=== PATIENT | male | born 1965 | race Caucasian/White ===

== ENCOUNTER 2020-09-27 06:53 | Outpatient (NON) | payer BC, SELFPAY ==
[2020-09-27 19:52] LABS: SARS-CoV-2 RNA PCR Negative
== END 2020-09-27 06:54 ==
LOC: ANHCOVIDDT 06:53
PROVIDERS: PCP Family Medicine; Visit Provider Nurse Practitioner Family
DX: Z20.828 Contact with and (suspected) exposure to other viral communicable diseases (principal); R68.89 Other general symptoms and signs
CPT/HCPCS: 87635; C9803; U0003

== ENCOUNTER → 2021-11-13 10:00 | Outpatient (CLI) | payer BC, SELFPAY ==
--- NOTE | ~2021-11-13 | MR_ITS ---
EXAMINATION: MR knee RT wo con DATE: 11/13/2021 11:20 INDICATION: Unilateral primary osteoarthritis of the right knee TECHNIQUE: Magnetic resonance imaging (MRI) of the right knee was performed without intravenous contr ast. Sequences included coronal PD-weighted FSE, coronal PD-weighted FS FSE, sagittal T2-weighted FS E, sagittal PD-weighted FS FSE and axial PD weighted fat saturated FSE. COMPARISON: None. FINDINGS: Medial compartment: Partial thickness radial tear extending 5 mm AP and cross anterior half of the posterior horn of the medial meniscus. The tear plane can't be well appreciated on axial series 6, image 20. Full/near full -thickness chondral fissuring without degenerative subchondral changes at the anterior weightbearing medial femoral condyle. Cartilage at the medial tibial plateau appears normal. Lateral compartment: Longitudinal tear at the posterior horn of the lateral meniscus likely complex with suggestion of bot h horizontal component extending to the free edge and peripheral vertical components extending to the inferior articular surface and the peripheral third. Partial-thickness chondral fissuring along the medial side of the lateral tibial plateau along the shoulder the intercondylar eminence. Mild chondra l surface irregularity along the medial side of the anterior weightbearing lateral femoral condyle. Patellofemoral compartment: Partial-thickness chondral fissuring along the posterior medial aspect of the medial patellar facet. Deep chondral ulceration and fissuring with underlying cortical irregularity at the mid to inferior a spect of and trochlear groove and medial side of the lateral trochlea. Additional partial thickness c artilage loss and deep fissuring at the more lateral aspect of the lateral trochlea. Ligaments and tendons: Anterior and posterior cruciate ligaments are normal. The medial collateral ligament and fibular kulwant ateral ligament complex are normal. The extensor mechanism is normal. The visualized medial and later al hamstring tendons as well as the iliotibial band are normal. Fluid: Physiologic amount of fluid in the joint space. No loose osteochondral bodies identified. Osseous/other: Mild cystic change and subcortical edema at the posterior aspect of the intercondylar eminence center ed near the footplate of the posterior horn of the lateral meniscus. No fracture or pathologic marrow replacing process. IMPRESSION: 1. Tears at the posterior horns of the medial and lateral menisci. 2. Mild tricompartmental osteoarthritis with moderate and high-grade chondromalacia in the patellofem oral compartment and moderate grade chondromalacia at the medial and lateral compartments. Reviewed, dictated and finalized at location A. BER CUB IMPRESSION: 1. Tears at the posterior horns of the medial and lateral menisci. 2. Mild tricompartmental osteoarthritis with moderate and high-grade chondromal acia in the patellofemoral compartment and moderate grade chondromalacia at the medial and lateral compartments.
== END ==
PROVIDERS: Visit Provider Physician Assistant Surgical
DX: M17.11 Unilateral primary osteoarthritis, right knee (principal); Z01.818 Encounter for other preprocedural examination; S83.241A Other tear of medial meniscus, current injury, right knee, initial encounter; S83.281A Other tear of lateral meniscus, current injury, right knee, initial encounter; X58.XXXA Exposure to other specified factors, initial encounter
CPT/HCPCS: 73721

== ENCOUNTER 2023-07-28 15:46 | Outpatient (CLI) | payer BC, SELFPAY ==
--- NOTE | ~2023-07-28 | XR_ITS ---
Left Knee Technique: AP, lateral, and sunrise views were obtained. Clinical History: Osteoarthritis Findings: No fracture or dislocation is seen. Osseous alignment is anatomic. Minimal degenerative spu rring of the patella and intercondylar notch. Soft tissues are unremarkable. No joint effusion is see n. Impression: Minimal degenerative spurring, as above. Reviewed, dictated and finalized at location M. Impression: Minimal degenerative spurring, as above.
--- NOTE | ~2023-07-28 | XR_ITS ---
Right Knee Technique: AP, lateral, and sunrise views were obtained. Clinical History: Osteoarthritis Findings: No fracture or dislocation is seen. Osseous alignment is anatomic. Joint spaces are preserv ed without degenerative or erosive change. Soft tissues are unremarkable. No joint effusion is seen. Impression: Unremarkable right knee radiographs. Reviewed, dictated and finalized at location . Impression: Unremarkable right knee radiographs.
== END 2023-07-28 15:47 | disposition home or self-care (01) ==
PROVIDERS: PCP Family Medicine; Visit Provider Orthopaedic Surgery
DX: M17.0 Bilateral primary osteoarthritis of knee (principal)
CPT/HCPCS: 73564

== ENCOUNTER 2024-01-21 13:31 | Emergency (ER) | payer BC, SELFPAY ==
--- NOTE | ~2024-01-21 | CT_ITS ---
EXAMINATION: CT abdomen pelvis w con DATE: 01/21/2024 15:16 INDICATION: Left lower quadrant abdominal pain. TECHNIQUE: Computed tomography (CT) of the abdomen and pelvis was performed with 100 mL Omnipaque-350 intravenous contrast. Automated exposure control and iterative reconstruction technique were employe d. The dose-length product was 1455.27 mGy-cm. COMPARISON: None FINDINGS: Scattered dependent and discoid atelectasis in the bilateral lower lobes. Heart size is normal. No pe ricardial or pleural effusion. Small calcified gallstone in the dependent aspect of the normal-appear ing gallbladder. No wall thickening or pericholecystic infiltrate stranding to suggest acute cholecys titis. Liver, pancreas, spleen, bilateral adrenal glands and right kidney are normal. 3 mm at least p artially obstructing stone at the left ureterovesicular junction with mild left hydroureteronephrosis . No other urolithiasis. Indeterminate 11 mm soft tissue density exophytic lesion at the upper pole o f the left kidney. There are few scattered colonic diverticula without adjacent from trace stranding to suggest diverticulitis. Small bowel and appendix are normal. Bladder is normal. No free intraperit gonzales gas or fluid. No pathologically enlarged abdominal or pelvic lymphadenopathy. Moderate spondylo sis at L5-S1 and mild spondylosis of the more cephalad lumbar and lower thoracic spine. IMPRESSION: 1. Mild left hydroureteronephrosis extending to at least partially obstructing 3 mm stone at the left ureterovesicular junction. 2. Indeterminate 11 mm soft tissue density exophytic lesion at the upper pole the left kidney which c ould represent a proteinaceous/hemorrhagic cyst or renal cell carcinoma. Recommend further evaluation with pre and postcontrast MRI or CT. Reviewed, dictated and finalized at location A. L PIECE CUTTER IMPRESSION: 1. Mild left hydroureteronephrosis extending to at least partially obstructing 3 mm stone at the left ureterovesicular junction. 2. Indeterminate 11 mm soft tissue density exophytic lesion at the upper pole t he left kidney which could represent a proteinaceous/hemorrhagic cyst or renal cell carcinoma. Recommend further evaluation with pre and postcontrast MRI or C T.
[2024-01-21 13:39] VITALS: BP 131/78; PULSE 70; RESP 18; TEMP 36.3; O2SAT 97
[2024-01-21 13:53] LABS: Basophils Percent Auto 0.4 % (0.2-1.2); Eosinophils Percent Auto 0.3 % (0-4.4); Hematocrit 43.3 % (42.0-52.0); Hemoglobin 15.5 g/dL (14.0-18.0); Immature Granulocyte Absolute 0.04 K/mm3 (0.00-0.031); Immature Granulocyte Percent A 0.4 % (0-0.5); Lymphocytes Absolute Auto 1.38 K/mm3 (0.9-3.2); Lymphocytes Percent Auto 13.2 % (18.3-44.2); Mean Corpuscular HGB Conc 35.8 g/dl (32-36); Mean Corpuscular Hemoglobin 31.6 pg (26-34); Mean Corpuscular Volume 88.4 fl (80-100); Mean Platelet Volume 9.8 fl (7.4-10.4); Monocytes Absolute Auto 0.6 K/mm3 (0.1-0.6); Monocytes Percent Auto 6.1 % (2.6-8.5); Neutrophils Absolute Auto 8.3 K/mm3 (1.3-6.7); Neutrophils Percent Auto 79.6 % (45.5-73.1); Platelet Count Result 205 k/mm3 (150-375); Red Cell Distribution Width 11.4 % (11.5-14.5); White Blood Count 10.4 K/mm3 (4.5-10.0)
[2024-01-21 14:05] VITALS: BP 140/91; PULSE 71; RESP 16; O2SAT 96
[2024-01-21 14:15] LABS: Alanine Aminotransferase 33 U/L (6-50); Albumin Level 4.3 g/dL (3.5-5.1); Alkaline Phosphatase 63 U/L (38-126); Anion Gap 7 mmol/L (8-16); Aspartate Amino Transferase 33 U/L (17-59); Blood Urea Nitrogen 16 mg/dL (9-20); Calcium 8.9 mg/dL (8.4-10.2); Carbon Dioxide 26 mmol/L (22-30); Chloride 106 mmol/L (98-107); Estimated CRCL calculation 90 ml/min; Estimated Glomerular Filt Rate > 60; Glucose 105 mg/dL (65-110); Lipase 79 U/L (23-300); Potassium 3.9 mmol/L (3.4-5.0); Sodium 139 mmol/L (137-145)
--- NOTE | 2024-01-21 14:42 | ED.ABDPAIN ---
HPI - Abdominal Pain General Chief Complaint: Abdominal Pain Stated Complaint: LLQ abd pain Time Seen by Provider: 01/21/24 14:04 Source: patient and family () Mode of arrival: ambulatory Limitations: no limitations History of Present Illness HPI narrative: 58 yo male presents with LLQ abdominal pain that started at 4am. He initially had nausea and vomited several times but this resolved. No diarrhea, fevers. Radiates towards his groin but no penile discharge or pain in penis/scrotum/testicles. Pain occurs intermittently. Has not taken anything for pain. Intermittent. Sent from urgent care to rule out diverticulitis; no history of this previously. He tested negative for flu and covid while at urgent care. LBM was this morning and normal without diarrhea, constipation, or blood. Related Data Home Medications Medication Instructions Recorded Confirmed omega 0-zoq-oer-fish oil 300 1 cap PO DAILY 04/22/22 08/06/23 mg-1,000 mg capsule (Fish Oil) Allergies Allergy/AdvReac Type Severity Reaction Status Date / Time clams Allergy Unknown NAUSEA Verified 08/06/23 08:35 [facility] Past Medical History Medical History Adult BMI 34.0-34.9 kg/sq m BMI 35.0-35.9,adult Osteoarthritis of right knee Surgical History Surgical History History of foot surgery (~2000) History of surgical removal of meniscus of knee (~2012) Family History Family History Mother Hypertension Grandparent Diabetes mellitus Father Family history of Parkinson's disease Other Cerebrovascular accident Depression Family history of malignant neoplasm of bone Social History Social History Smoking status: Never smoker Second hand tobacco smoke exposure: No Alcohol intake: current Substance use: never Substance use type: does not use Lack of Transportation: No Lack of Food: Never True Current Housing: I Have Housing Concerned About Future Housing: No Difficulty Paying Gas/Electric Bills: No Difficulty Paying for Meds: No Currently Unemployed: No Education: Master's Degree or Higher Difficulty w/ Childcare or Family Care: No Living arrangements: with family Exam Narrative: GENERAL: Well-appearing, well-nourished, and in no acute distress. HEAD: Normocephalic, atraumatic. EYES: Non injected, non icteric ENT: Nares clear, no rhinorrhea or epistaxis. NECK: Supple. CHEST: Speaking in full sentences. No respiratory distress. HEART: Regular rate and rhythm. ABDOMEN: Soft, nondistended. No overlying ecchymosis. Grossly symmetric. TTP in LLQ without rebound tenderness or guarding. Not peritoneal. EXTREMITIES: Normal range of motion. No edema. SKIN: Warm, dry, no rash. NEURO: No focal deficits. Alert and oriented x3. PSYCH: Normal mood and affect. Course Vital Signs Vital signs: Vital Signs Temperature 97.4 F L 01/21/24 13:39 Pulse Rate 70 01/21/24 13:39 Respiratory Rate 18 01/21/24 13:39 Blood Pressure 131/78 01/21/24 13:39 Pulse Oximetry 97 01/21/24 13:39 Oxygen Delivery Room Air 01/21/24 13:39 Temperature 98.8 F 01/21/24 16:45 Pulse Rate 84 01/21/24 16:45 Respiratory Rate 22 H 01/21/24 16:45 Blood Pressure 138/76 01/21/24 16:45 Pulse Oximetry 96 01/21/24 16:45 Oxygen Delivery Room Air 01/21/24 13:39 MDM - Abdominal Pain MDM Narrative Medical decision making narrative: Patient presents with LLQ that radiates towards groin since 4am. Initially nauseated and vomiting but that resolved. No fevers. In the ED he is afebrile with VS WNL. He does express that he might need some medication for CT scan as he gets claustrophobic. CT imaging shows 3mm stone at UVJ. Mild hydroureteronephrosis as well as unclear lesion at kidne
[2024-01-21 15:24] LABS: Appearance Urine Clear (Clear); Bilirubin Urine Negative (Negative); Blood Urine Negative (Negative); Color Urine Yellow (Yellow); Glucose Urine UA Negative (Negative); Ketones Urine Negative (Negative); Leukocyte Esterase Ur Negative LEU/UL (Negative); Nitrate Urine Negative (Negative); Protein Urine Negative (Negative); Specific Grav Ur 1.007 (1.001-1.035); Urobilinogen Urine 0.2 mg/dL (<2.0)
[2024-01-21 15:30] LABS: Add Urine Microscopic? NO
[2024-01-21] MEDS: HALOPERIDOL LACTATE 5 MG/ML VIAL 2.5 MG IV PUSH (15:53)
[2024-01-21 15:54] VITALS: BP 137/73; PULSE 75; RESP 19; O2SAT 99
[2024-01-21] MEDS: TAMSULOSIN HCL 0.4 MG CAPSULE PO (16:25)
[2024-01-21] MEDS: KETOROLAC 15 MG/ML VIAL (*BKC) IV PUSH (16:25)
[2024-01-21 16:45] VITALS: BP 138/76; PULSE 84; RESP 22; TEMP 37.1; O2SAT 96
== END 2024-01-21 16:48 | disposition home or self-care (01) ==
PROVIDERS: Physician Assistant; Emergency Provider Student in an Organized Health Care Education/Training Program; PCP Family Medicine
DX: N13.2 Hydronephrosis with renal and ureteral calculous obstruction (principal); N28.9 Disorder of kidney and ureter, unspecified; M17.11 Unilateral primary osteoarthritis, right knee
CPT/HCPCS: 36415; 74177; 80053; 81003; 83690; 85025; 96374; 96375; 99284; A9270; J1630; J1885; Q9967

== ENCOUNTER 2024-02-21 14:34 | Outpatient (CLI) | payer BC, SELFPAY ==
--- NOTE | ~2024-02-21 | MR_ITS ---
MRI of the abdomen: Clinical indication: Left renal lesion. Technique: Coronal SSFSE ARC, WATER:coronal LAVA-FLEX, Coronal 2D FIESTA FatSat, Axial SSFSE BH ARC, Axial 3D DualEcho BH, Axial SSFSE-IR, Axial DWI b=500, Axial 2D FIESTA FatSat, pre and dynamic postco ntrast Axial LAVA ARC, postcontrast Coronal In and Opposed phase LAVA FLEX . Following intravenous ad ministration of 20 cc MultiHance gadolinium, T1-weighted fat-sat imaging was performed in the axial a nd coronal planes. COMPARISON: CT scan dated 324 Findings: Gallbladder is unremarkable. The common bile duct is normal in course and caliber. No filli ng defects are seen within the CBD. No evidence of intrahepatic biliary ductal dilatation. The pancre atic duct is normal in size. Again identified is a 10 mm mass at the lateral upper pole left kidney. This is T1 hyperintense, T2 h ypointense, with no apparent postcontrast enhancement. Liver, spleen, pancreas, adrenals, right kidney appear normal. The aorta and the paraaortic regions a ppear normal. Impression: 10 mm mass at the upper pole left kidney is most compatible with proteinaceous/hemorrhagic cyst. Reviewed, dictated and finalized at [facility]. Impression: 10 mm mass at the upper pole left kidney is most compatible with proteinaceous/ hemorrhagic cyst.
== END 2024-02-21 14:35 | disposition home or self-care (01) ==
PROVIDERS: PCP Family Medicine; Visit Provider Physician Assistant Medical
DX: N28.9 Disorder of kidney and ureter, unspecified (principal)
CPT/HCPCS: 74183; A9577

== ENCOUNTER 2024-05-03 10:07 | Outpatient (CLI) | payer BC, SELFPAY ==
--- NOTE | ~2024-05-03 | XR_ITS ---
XR knee LT min 4V Ordering provider: Bert Correa MD History: . M17.0 - Bilateral primary osteoarthritis of knee, F/U . Comparison: July 28, 2023 FINDINGS: BONES: No acute fracture or dislocation. JOINT SPACES: Normal. SOFT TISSUES: Normal. IMPRESSION: No acute osseous abnormality left knee. Reviewed, dictated and finalized at location A.
--- NOTE | ~2024-05-03 | XR_ITS ---
XR knee RT min 4V Ordering provider: Bert Correa MD History: . M17.0 - Bilateral primary osteoarthritis of knee. F/U . Comparison: July 28, 2023 FINDINGS: BONES: No acute fracture or dislocation. JOINT SPACES: Normal. SOFT TISSUES: Normal. IMPRESSION: No acute osseous abnormality right knee. Reviewed, dictated and finalized at location A.
== END 2024-05-03 10:08 | disposition home or self-care (01) ==
PROVIDERS: PCP Family Medicine; Visit Provider Orthopaedic Surgery
DX: M17.0 Bilateral primary osteoarthritis of knee (principal)
CPT/HCPCS: 73564

== ENCOUNTER 2024-09-14 15:46 | Outpatient (CLI) | payer BC, SELFPAY ==
--- NOTE | ~2024-09-14 | US_ITS ---
EXAMINATION: US renal BI DATE: 09/14/2024 16:27 INDICATION: Disorder of kidneys and ureter. TECHNIQUE: Multiple ultrasound grayscale images of the kidneys were obtained. COMPARISON: MRI dated 02/21/2024 FINDINGS: The right kidney measures 12.3 x 6.2 x 5.7 cm. The left kidney measures 12.0 x 6.2 x 4.4 cm. The kidn eys demonstrate normal echogenicity. There is no hydronephrosis in either kidney. No shadowing renal stones identified. The bladder is normal with bilateral ureteral jets visualized on color Doppler. IMPRESSION: 1. Normal kidneys without hydronephrosis. Reviewed, dictated and finalized at location A.
== END 2024-09-14 15:47 | disposition home or self-care (01) ==
PROVIDERS: PCP Family Medicine; Visit Provider Physician Assistant Medical
DX: N28.9 Disorder of kidney and ureter, unspecified (principal)
CPT/HCPCS: 76775

== ENCOUNTER 2025-01-22 12:56 | Outpatient (CLI) | payer BC, SELFPAY ==
--- NOTE | ~2025-01-22 | MR_ITS ---
EXAMINATION: MR knee LT wo con DATE: 01/22/2025 13:36 INDICATION: Unspecified internal derangement of left knee. Left knee pain. TECHNIQUE: Magnetic resonance imaging (MRI) of the left knee was performed without intravenous contra st. Sequences included axial PD-weighted FS FSE, coronal PD-weighted FSE and PD-weighted FS FSE, sagi ttal PD-weighted FSE, and sagittal T2-weighted FS FSE. COMPARISON: Left knee radiographs 11/10/2024 FINDINGS: Medial compartment: There is a complex tear involving the body and posterior horn of medial meniscus. There is shallow pa rtial thickness causes loss of tibial condyle with subchondral edema-like marrow signal intensity. Th ere is full-thickness cartilage loss of femoral condyle involving the central articular surface. Ther e is a subchondral insufficiency fracture of femoral condyle involving the central articular surface with low signal subchondral fracture line and surrounding edema-like marrow signal intensity. Lateral compartment: There is a radial tear of posterior root of lateral meniscus. There is deep partial thickness causes loss of tibial condyle involving the medial articular surface with mild subchondral edema-like marrow signal intensity. Femoral cartilage is normal. Patellofemoral compartment: There is cartilage surface irregularity of patella. There is deep partial thickness cartilage loss of medial, central, and lateral trochlea with mild subchondral edema-like marrow signal intensity. Ligaments and tendons: Anterior cruciate ligament is normal. Posterior cruciate ligaments is normal. There are changes of pr ior sprains of medial collateral ligament and fibular collateral ligament characterized by increased signal intensity proximally. There is mild patellar tendinopathy. Fluid: There is a small knee joint effusion. There is a 16 mm ganglion cyst posterior to the knee joint. The re is mild prepatellar and superficial infrapatellar bursitis. IMPRESSION: 1. Subchondral insufficiency fracture of medial femoral condyle. 2. Severe chondrosis of medial compartment and moderate chondrosis of lateral and patellofemoral comp artments. 3. Tears of medial and lateral menisci. 4. Small knee joint effusion. Reviewed, dictated and finalized at location B. IMPRESSION: 1. Subchondral insufficiency fracture of medial femoral condyle. 2. Severe chondrosis of medial compartment and moderate chondrosis of lateral a nd patellofemoral compartments. 3. Tears of medial and lateral menisci. 4. Small knee joint effusion.
== END 2025-01-22 12:57 | disposition home or self-care (01) ==
LOC: MICIMG 12:58
PROVIDERS: PCP Family Medicine; Visit Provider Orthopaedic Surgery
DX: M25.462 Effusion, left knee (principal); S83.282A Other tear of lateral meniscus, current injury, left knee, initial encounter; S83.242A Other tear of medial meniscus, current injury, left knee, initial encounter; X58.XXXA Exposure to other specified factors, initial encounter
CPT/HCPCS: 73721

== ENCOUNTER 2025-03-05 01:49 | Day surgery (SDC) | payer BC, SELFPAY ==
[2025-02-27 14:47] VITALS: BMI 35.4
--- NOTE | 2025-02-27 15:18 | PC.NURSE ---
Report to the Outpatient Waiting Room, entrance under the green pavilion located off [facility], at time _1300_ on date __03/05/25 . Planned Procedure Time: _1500__.? Time changes happen often and if your time is changed the preop area will call you the afternoon before. - You and your visitor will be asked to self-screen and do not enter if you have any COVID symptoms. Please call surgeon if you need to reschedule. - A mask is optional within the hospital at this time. Patients may have clear liquids (water, carbonated beverages, clear teas, apple juice) until 3 hours prior to surgery with a maximum of 20 ounces. - No food from midnight until time of surgery and no smoking, or chewing tobacco (or any form of nicotine). No chewing gum, candy or mints. Take only the following medications with a SIP of water on the morning of surgery: _BUPROPRION DO NOT STOP ANY OF YOUR OTHER PRESCRIPTION MEDICATIONS PRIOR TO SURGERY EXCEPT THE FOLLOWING Hold all vitamins and supplements for 3 days per anesthesiologist. Medications to discontinue per physician FISH OIL__03/02/25 NO NEED TO HOLD CELEBREX Date to take last dose Please no make-up, nail bahamian, hairspray, perfume, deodorant, or body powder the day of surgery.? No jewelry (including any body piercings) or valuables the day of surgery, leave them at home.? Please take a shower or bath the night before, or the morning of, surgery with an antibacterial soap.? Wear comfortable, loose fitting clothing.? - Jewelry must be removed prior to entering the operating room.? Rings and piercings that are not removed may be cut off. - The hospital will not accept responsibility for valuables.? - Please leave all valuables, including medications, at home the day of surgery. If you are going home after surgery, a licensed otr company driver must drive you home.? - NO public transportation without another adult if you receive anesthesia. - We recommend that an adult stay with you for 24 hours following discharge. - We also recommend that you do not drive, make important decision, drink alcoholic beverages, or take any drugs that were not prescribed by your health care provider for at least 24 hours after your discharge time. Follow any additional instructions given to you from your surgeon. Telephone instructions given to _JT and asked if any additional questions and then verbalized understanding. Patient advised to call surgeon office or pre surgery nurse liaison [phone] if any additional questions.
[2025-03-05] VITALS (7 sets, daily range): BP systolic 116–152; BP diastolic 61–99; PULSE 72–90; RESP 14–20; TEMP 36.1–36.7; O2SAT 94–97
--- OUTSIDE RECORDS SUMMARY | 2025-03-05 01:51 | XMS_ITS | Referral Summary ---
Author Organization [facility] [place] [address] Address [address] [place] [id number] Care Team Providers Care Junior Web Developer Name Role Phone Unknown, Notinfile Primary Care Provider Unavail able Encounters Date Type Department Care Team Description 12/05/2024 8:00 AM ORDNANCE TECHNICIAN Office Visit [facility] at [address] [id number] Richa Jiménez NP Abscess of right thigh (Primary Dx) from Last 3 Months Allergies No known active allergies Medications Wellbutrin XL 300 mg 24 hr tablet Take 1 tablet (300 mg total) by mouth every morning 11/19/2023 Active allopurinoL (ZYLOPRIM) 100 mg tablet Take 1 tablet (100 mg total) by mouth daily Active Active Problems Problem Noted Date Diagnosed Date 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 Social History Tobacco Use Types Packs/Day Years Used Date Smoking Tobacco: Never Assessed Alcohol Use Standard Drinks/Week Comments Yes 0 (1 standard drink = 0.6 oz pur e alcohol) Sex and Gender Information Value Date Recorded Sex Assigned at Not on file Legal Sex Male 12:37 AM ORDNANCE TECHNICIAN Gender Identity Not on file Sexual Orientation Not on file Last Filed Vital Signs Vital Sign Reading Time Taken Comments Blood Pressure 159/89 12/05/2024 8:05 AM ORDNANCE TECHNICIAN Pulse 77 12/05/2024 8:05 AM ORDNANCE TECHNICIAN Temperature 36.8 C (98.2 F) 12/05/2024 8:05 AM ORDNANCE TECHNICIAN Respiratory Rate 20 12/05/2024 8:05 AM ORDNANCE TECHNICIAN Oxygen Saturation 99% 12/05/2024 8:05 AM ORDNANCE TECHNICIAN Inhaled Oxygen Concentration - - Weight 123.4 kg (272 lb) 12/05/2024 8:05 AM ORDNANCE TECHNICIAN Height 186.7 cm (6' 1.5 ) 12/05/2024 8:05 AM ORDNANCE TECHNICIAN Body Mass Index 35.4 12/05/2024 8:05 AM ORDNANCE TECHNICIAN Plan of Treatment Not on file Insurance [facility] ACCESS CHOICE Care Teams Junior Web Developer Relationship Specialty Start Date End Date Unknown, Notinfile PCP - General 01/21/24
--- OUTSIDE RECORDS SUMMARY | 2025-03-05 01:51 | XMS_ITS | Clinical Summary ---
Author Organization 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 Encounters Date Type Department Care Team Description 12/05/2024 8:00 AM HEEL CEMENTER Office Visit [facility] at [address] [phone] Richa Jiménez NP Abscess of right thigh (Primary Dx) from Last 3 Months Social History Tobacco Use Types Packs/Day Years Used Date Smoking Tobacco: Never Assessed Alcohol Use Standard Drinks/Week Comments Yes 0 (1 standard drink = 0.6 oz pur e alcohol) Sex and Gender Information Value Date Recorded Sex Assigned at Not on file Legal Sex Male 12:37 AM HEEL CEMENTER Gender Identity Not on file Sexual Orientation Not on file Obstetrics History Last Filed Vital Signs Vital Sign Reading Time Taken Comments Blood Pressure 159/89 12/05/2024 8:05 AM HEEL CEMENTER Pulse 77 12/05/2024 8:05 AM HEEL CEMENTER Temperature 36.8 C (98.2 F) 12/05/2024 8:05 AM HEEL CEMENTER Respiratory Rate 20 12/05/2024 8:05 AM HEEL CEMENTER Oxygen Saturation 99% 12/05/2024 8:05 AM HEEL CEMENTER Inhaled Oxygen Concentration - - Weight 123.4 kg (272 lb) 12/05/2024 8:05 AM HEEL CEMENTER Height 186.7 cm (6' 1.5 ) 12/05/2024 8:05 AM HEEL CEMENTER Body Mass Index 35.4 12/05/2024 8:05 AM HEEL CEMENTER Plan of Treatment Health Maintenance Due Date Last Done Comments Colon Cancer Screening-Colonoscopy 1965 Depression Screening 1965 Hepatitis C Screening 1965 Prostate Cancer Screening-PSA 1965 DTaP/Tdap/Td Vaccine (1 - Tdap) 1976 Hepatitis B Screening 1983 Regular Well Visit/Exam 18-64 1983 Zoster Vaccine (1 of 2) 2015 Influenza Vaccine (#1) 2024 Pneumococcal vaccine <65 Aged Out No longer eligible based on patient's age to complete this topic Insurance [employer] CHOICE Care Teams Commercial Print Salesman Relationship Specialty Start Date End Date Unknown, Notinfile PCP - General 01/21/24
--- OUTSIDE RECORDS SUMMARY | 2025-03-05 01:51 | XMS_ITS | Clinical Summary ---
Author Organization [facility] Care Team Providers Care Wrapping Checker Name Role Phone Unavailable Primary Care Provider Unavailabl e Social History Tobacco Use Types Packs/Day Years Used Date Smoking Tobacco: Never Assessed Sex and Gender Information Value Date Recorded Sex Assigned at Not on file Legal Sex Male 12:00 PM TRICK RODEO RIDER Gender Identity Not on file Sexual Orientation Not on file Plan of Treatment Health Maintenance Due Date Last Done Comments Hepatitis C Virus (HCV) Screening 1965 TdaP Immunization 1965 Hepatitis B Immunization (1 of 3 - 19+ 3-dose series) 1984 Colonoscopy 2010 Colorectal Cancer Screening 2010 Cologuard 2015 Immunochemical Fecal Occult Blood 2015 Pneumococcal Immunization (5 0+ years) (1 of 1 - PCV) 2015 Zoster Immunization (1 of 2) 2015 PSA Discussion 2020 Influenza Immunization (#1) 2024 SARS-COV-2 Immunization ( - season) 2024 Respiratory Syncytial Virus (RSV) Immunization (Adult) (1 - 1-dose 75+ series) 2040 Meningococcal Immunization (ACWY) Aged Out No longer eligible based on patient's age to complete this topic Pneumococcal Immunization Combined Aged Out No longer eligible based on patient's age to complete this topic Rotavirus Immunization Aged Out No lo nger eligible based on patient's age to complete this topic
--- NOTE | 2025-03-05 11:46 | WPDHPUPDATE1 ---
History and Physical Update Update Date/Time: 03/05/25 11:46 History and Physical has been reviewed, including an updated exam of the patient. There are NO changes in the patient's condition. Risks, benefits, and alternatives have been discussed and questions answered. Patient agrees to proceed with procedure.
[2025-03-05] MEDS: ACETAMINOPHEN 500 MG TABLET 1000 MG PO (13:25)
[2025-03-05] MEDS: LACTATED RINGERS 1,000 ML 30 ML IV CONT ×2 (13:28→16:49)
[2025-03-05] MEDS: KETOROLAC 15 MG/ML VIAL (*BKC) IV PUSH (13:30)
--- NOTE | 2025-03-05 14:07 | WPDANESEPPF ---
Anes - Initial Pre Proc Eval Procedure: Operation Date: 03/05/25 15:00 Proposed Procedures p Left Knee Arthroscopic Partial Medial and Lateral Meniscectomy - Bert Correa MD Date/Time: 03/05/25 14:07 Surgeon: Bert Correa MD Pre Op Diagnosis: Lt Knee Med & Lat Meniscus Tear Patient Data Age: 59 Gender: M Height: 1.83 m Weight: 121.3 kg Last Vital Signs Temp 36.7 C 03/05/25 13:10 Pulse 90 03/05/25 13:10 Resp 16 03/05/25 13:10 BP 144/90 H 03/05/25 13:10 Pulse Ox 97 03/05/25 13:10 O2 Del Method Room Air 03/05/25 13:10 Allergies Allergy/AdvReac Type Severity Reaction Status Date / Time clams Allergy Unknown NAUSEA Verified 03/05/25 13:13 Home Medications ?Medication ?Instructions ?Recorded ?Confirmed ?Type omega 6-mnh-gpb-fish oil 300 1 cap PO DAILY 04/22/22 03/05/25 History mg-1,000 mg capsule (Fish Oil) allopurinol 100 mg tablet 100 mg PO DAILY #90 tabs 09/26/24 03/05/25 Rx Wellbutrin XL 300 mg 24 hr tablet, 300 mg PO QAM #90 tabs 10/24/24 03/05/25 Rx extended release (bupropion HCl) celecoxib 200 mg capsule 200 mg PO DAILY #90 caps 01/10/25 03/05/25 Rx hydrocodone 5 mg-acetaminophen 325 1 - 2 tablet PO Q4-6H PRN pain 7 03/05/25 Rx mg tablet days #30 tabs Patient hx anesthesia problems: none Family hx anesthesia problems: none Results Review: All pre-operative results and documents have been reviewed as part of the pre-operative evaluation. FOR[facility]LY [facility] Past Medical History Medical History BMI 35.0-35.9,adult Adult BMI 34.0-34.9 kg/sq m Osteoarthritis of right knee Surgical History Surgical History History of surgical removal of meniscus of knee (~2012) History of foot surgery (~2000) Family History Family History Mother Hypertension Grandparent Diabetes mellitus Father Family history of Parkinson's disease Other Cerebrovascular accident Depression Family history of malignant neoplasm of bone Social History Social History Smoking status: Never smoker Second hand tobacco smoke exposure: No Alcohol intake: current Substance use: never Substance use type: does not use Do You Feel Safe in your Home?: Yes Lack of Transportation: No Lack of Food: Never True Current Housing: I Have Housing Concerned About Future Housing: No Difficulty Paying Gas/Electric Bills: No Difficulty Paying for Meds: No Currently Unemployed: No Education: Master's Degree or Higher Difficulty w/ Childcare or Family Care: No Living arrangements: with family Casss - Danyel Final PreProcedure Day of Procedure 03/05/25 14:07 Patient weight: obese Heart: regular rate and rhythm Lungs: clear to auscultation Airway: Mallampati scale class II Neurological: alert and oriented Last oral intake: >/= 8 hours ASA classification: II Emergent: no Anesthetic plan: proceed Anesthesia type and monitoring: general LMA and standard monitoring Results Review: All pre-operative results and documents have been reviewed as part of the pre-operative evaluation. Informed Consent: The patient's anesthetic plan and its attendant risks and benefits were discussed with the patient/family/POA. Questions were solicited and answers provided to the satisfaction of the patient/family/POA.
--- NOTE | 2025-03-05 15:07 | PM.HPGS ---
History of Present Illness History of Present Illness Consent: Risks, benefits, and alternatives have been discussed and questions answered. Patient agrees to proceed with procedure. Chief complaint: Lt Knee Med & Lat Meniscus Tear Narrative: Axel Rain is a 59 year old male with worsening medial sided left knee pain. He has swelling and intermittent catching. He is having a difficult time walking. Symptoms initially began a few months ago when he was walking on uneven surfaces while hunting. He has had 2 injections. He complains of associated swelling and a catching sensation. He has been unable to work out. He uses Advil. Review of Systems Review of Systems: All systems reviewed & are unremarkable except as noted in HPI and below PMFSH Past Medical History Medical History BMI 35.0-35.9,adult Adult BMI 34.0-34.9 kg/sq m Osteoarthritis of right knee Surgical History Surgical History History of surgical removal of meniscus of knee (~2012) History of foot surgery (~2000) Family History Family History Mother Hypertension Grandparent Diabetes mellitus Father Family history of Parkinson's disease Other Cerebrovascular accident Depression Family history of malignant neoplasm of bone Social History Social History Smoking status: Never smoker Second hand tobacco smoke exposure: No Alcohol intake: current Substance use: never Substance use type: does not use Do You Feel Safe in your Home?: Yes Lack of Transportation: No Lack of Food: Never True Current Housing: I Have Housing Concerned About Future Housing: No Difficulty Paying Gas/Electric Bills: No Difficulty Paying for Meds: No Currently Unemployed: No Education: Master's Degree or Higher Difficulty w/ Childcare or Family Care: No Living arrangements: with family Meds Home Medications and Allergies Home Medications ?Medication ?Instructions ?Recorded ?Confirmed ?Type omega 2-kze-unr-fish oil 300 1 cap PO DAILY 04/22/22 03/05/25 History mg-1,000 mg capsule (Fish Oil) allopurinol 100 mg tablet 100 mg PO DAILY #90 tabs 11/12/24 04/21/25 Rx Wellbutrin XL 300 mg 24 hr tablet, 300 mg PO QAM #90 tabs 10/24/24 03/05/25 Rx extended release (bupropion HCl) celecoxib 200 mg capsule 200 mg PO DAILY #90 caps 01/10/25 03/05/25 Rx hydrocodone 5 mg-acetaminophen 325 1 - 2 tablet PO Q4-6H PRN pain 7 03/05/25 Rx mg tablet days #30 tabs Allergies Allergy/AdvReac Type Severity Reaction Status Date / Time clams Allergy Unknown NAUSEA Verified 03/05/25 13:13 Vital Signs Vital Signs - 24 hr 03/05/25 13:10 Temperature 36.7 C Pulse Rate 90 Respiratory Rate 16 Blood Pressure 144/90 H Pulse Oximetry 97 Oxygen Delivery Room Air Exam Narrative: Large muscular male. Moderate effusion. Painful limited range of motion. 10? to 120?. Pain with hyperflexion. Aron's test positive. Large quad. Increased patellar tilt and tight lateral restraints. Intact ligaments. Light touch sensation intact. Diagnostics Radiographs taken 11/10/24 reviewed personally. Minimal early generative changes bilaterally. No significant changes radiographically. MRI reviewed personally. He does have a significant complex medial meniscus tear. Subtle posterior horn lateral tear potentially. There is edema in the medial femur consistent with subchondral insufficiency fracture with overlying chondromalacia. Assessment and Plan Assessment and plan (1) Acute medial meniscus tear of left knee: Qualifiers: Encounter type: initial encounter Qualified Code(s): S83.242A - Other tear of medial meniscus, current injury, left knee, initial encounter Code(s): S83.242A - Other tear of medial meniscus, current injury, left knee, initial encounter Status: Acute (2) Acute lateral meniscus tear of left knee: Qualifiers: Encounter type: initial encounter Qualified Code(s): S83.282A - Other tear of lateral meniscus, current injury, left knee, initial encounter Code(s): S83.282A - Other tear of lateral meniscus, current injury, left knee, initial encounter Status: Acute (3) Insufficiency fracture of medial condyle of femur: Code(s): M84.453A - Pathological fracture, unspecified femur, initial encounter for fracture Status: Acute Plan Severe knee pain and mechanical symptoms. MRI confirms symptomatic medial meniscus tear. There is a subtle lateral tear as well. He has a subchondral insufficiency fracture which is centrally appears to be edema in the medial femur. This may be amenable to microfracture or chondroplasty. After discussion of the risks benefits and alternatives we agreed to proceed with arthroscopic partial medial and lateral meniscectomy, and proceed as indicated. Initially he seemed to improve with injections and exercise. However, the symptoms have worsened. Now he has feeling that the knee is catching and is locking. He is unable to bear full weight without pain. We discussed operative and non-operative options in detail. We reviewed the expected results and typical recovery after surgery. Proceed with arthroscopic partial medial and lateral meniscectomy. The patient understands the limitations given the degenerative changes in the knee. Risks, benefits, and alternatives discussed.
[2025-03-05] MEDS: ceFAZolin 3 GM/D5W 100 ML 100 ML IVPB (15:57)
[2025-03-05] MEDS: BUPIVACAINE/EPINEPHRINE 0.5% 10 ML VIAL 20 ML INFILTRATE (16:42)
--- NOTE | 2025-03-05 17:10 | P.OP_ITS ---
Procedure Note - Detailed Date of Procedure 03/05/25 Pre-op Diagnosis Lt Knee Med & Lat Meniscus Tear Post-op Diagnosis Same Procedure Performed Arthroscopic partial medial and lateral meniscectomies, left knee. Surgeon Bert Correa MD Anesthesia General Findings Complex posterior medial tear and significant posterior horn horizontal tear lateral. The medial defect appeared to be a longintudinal area of grade 3 wear 8mm x 15mm with poorly defined borders, not amenable to microfracture. Medial femur chondromalacia grade 3, medial tibia grade 1. Lateral femur chondromalacia grade 0, lateral tibia grade 0. Patellar grade 1, trochlea grade 4. Description of Procedure The patient was identified and the surgical site confirmed and signed in the preoperative holding area. Antibiotics were started per protocol, and the patient was brought to the operative room and transferred to the OR table. A general anesthetic was administered. Supine position with the operative lower extremity position in the leg faust after placement of a well padded tourni quet. The leg support was lowered and the contralateral limb was supported with a soft bolster. The knee was prepped and draped in the usual sterile fashion. A time-out was performed. The portal sites were marked and infiltrated with 0.5% Marcaine 20 mL. The limb was exsanguinated and the tourniquet inflated to 300 mL Hg. Standard inferolateral and inferomedial portals were established. Inflow was obtained with the saline pump. The camera was introduced. Diagnostic inspection of the joint was accomplished. The menisci wereus was debrided with the arthroscopic shaver and punches until stable. The radiofrequency probe was also used for further d?bridement. Gentle chondroplast was performed on the medial tibia and trochlea. The arthroscopic instruments were removed. The tourniquet released and wounds closed with subcutaneous 4-0 Monocryl absorbable suture. Steri strips and a sterile dressing were applied. A light elastic wrap was placed. The patient was extubated and brought to the recovery room in stable condition. Estimated Blood Loss 5 Drains No Complications No immediate complications Condition Stable Disposition PACU [facility] Billing Surgery - Charge Forward: Surgery Billing
[2025-03-05] MEDS: oxyCODONE HCL (*CRX) 5 MG TAB IR PO (17:35)
== END 2025-03-05 18:25 | disposition home or self-care (01) ==
PROVIDERS: PCP Family Medicine; Visit Provider Orthopaedic Surgery
PROC: (CPT 29870; principal; 2025-03-05 15:00)
DX: S83.232A Complex tear of medial meniscus, current injury, left knee, initial encounter (principal); S83.282A Other tear of lateral meniscus, current injury, left knee, initial encounter; M94.262 Chondromalacia, left knee; X50.0XXA Overexertion from strenuous movement or load, initial encounter; E66.9 Obesity, unspecified; Z68.36 Body mass index [BMI] 36.0-36.9, adult
CPT/HCPCS: 29880; A9270; J0690; J1100; J1885; J2003; J2250; J2405; J2704; J3010; J7120